=== PATIENT | female | born 1960 | race Caucasian/White ===

== ENCOUNTER → 2022-06-19 14:00 | Outpatient (BNVA) | payer OTHER, SELFPAY | PROVIDERS: Family Provider Family Medicine; Visit Provider Nurse Practitioner Women's Health | DX: N95.0 Postmenopausal bleeding (principal); N76.0 Acute vaginitis; B96.89 Other specified bacterial agents as the cause of diseases classified elsewhere; R10.2 Pelvic and perineal pain; Z12.4 Encounter for screening for malignant neoplasm of cervix | CPT/HCPCS: 87491; 87591; 87624; 87661; 88175 ==

== ENCOUNTER → 2022-07-30 10:52 | Outpatient (BNVA) | payer OTHER, SELFPAY | PROVIDERS: Family Provider Family Medicine; PCP Family Medicine; Visit Provider Internal Medicine Rheumatology | DX: M45.6 Ankylosing spondylitis lumbar region (principal); M19.90 Unspecified osteoarthritis, unspecified site; Z79.899 Other long term (current) drug therapy | CPT/HCPCS: 36415; 72100; 72170; 73130; 73562; 80076; 82565; 85025; 85651; 86140; 86200; 86812 ==

== ENCOUNTER 2023-01-18 13:23 | Outpatient (CLI) | payer OTHER, SELFPAY ==
--- NOTE | 2023-01-18 14:00 | US_ITS ---
WS: [id number] US pelv w/transvag [id number] HISTORY: R10.2 - Pelvic and perineal pain COMPARISON: None available. Uterus: 6.5 cm x 3.4 cm x 2.2 cm. Normal size anteverted uterus. No fibroid or mass. Endometrium: 0.5 cm. Size is normal but there is mild heterogeneity throughout. RIGHT adnexa: RIGHT ovary is not definitely visualized. There is a mass in the RIGHT adnexa which is mildly heterogeneous with some shadowing. This mass is a increased echogenicity as compared to a norm al ovary. Mass measures 2.8 x 1.8 x 2.2 cm and is inseparable from the uterus. Shadowing suggests thi s could be a fibroid. The ovary is not seen. This RIGHT adnexal mass may also be inspissated fecal ma terial within the GI tract. Left ovary: 2.2 cm x 3.4 cm x 2.0 cm. Normal size and vascularity, no cystic or solid masses. Small f ollicle associated with the ovary measures 1.8 x 2.8 x 1.7 cm. No free fluid in the cul-de-sac. US/US pelv w/transvag [id number] IMPRESSION: 1. RIGHT adnexal mass with a few areas of shadowing measures 2.8 x 1.8 x 2.2 c m. Not a typical appearance of the ovary. This may be an exophytic fibroid from the uterus or inspissated fecal material within the GI tract. Short-term trans vaginal ultrasound follow-up may be of benefit. 2. Very mildly heterogeneous endometrium. No discrete mass identified. 3. Small LEFT ovarian follicle.
== END 2023-01-18 13:24 | disposition home or self-care (01) ==
LOC: RAD 13:31
PROVIDERS: PCP Family Medicine; Visit Provider Obstetrics & Gynecology
DX: R10.2 Pelvic and perineal pain (principal); R19.09 Other intra-abdominal and pelvic swelling, mass and lump
CPT/HCPCS: 76830; 76856

== ENCOUNTER → 2023-03-07 08:24 | Outpatient (BNVA) | payer OTHER, SELFPAY | PROVIDERS: PCP Family Medicine; Visit Provider Nurse Practitioner Women's Health | DX: R19.00 Intra-abdominal and pelvic swelling, mass and lump, unspecified site (principal) | CPT/HCPCS: 76830 ==

== ENCOUNTER 2023-04-11 12:01 | Outpatient (CLI) | payer OTHER, SELFPAY ==
[2023-04-11] MEDS: gadobenate dimeglumine 20 mL vial IV (12:49)
--- NOTE | 2023-04-11 13:00 | MR_ITS ---
WS: [id number] MRI PELVIS WITH AND WITHOUT CONTRAST. COMPARISON: Pelvic ultrasound 03/07/2023 and 01/18/2023. Multiplanar, multisequence imaging is performed with and without contrast. MultiHance 20 mL IV. Uterus is midline and normal size. Thin endometrium measuring 5 mm. No masses are identified along th e endometrial canal. Small nabothian cysts at the cervix. No fibroid identified. In the RIGHT adnexa is a low signal mass which is embedded within the suspensory ovarian ligament. Th is mass corresponds to the finding on the recent pelvic ultrasounds. Mass measures 2.8 x 3.3 x 2.3 cm . This is in the correct location for an ovary. No separate ovary is identified. This does not appear to be an exophytic fibroid as suspected on the prior examination. No follicles. No abnormal enhancem ent. Diffusion imaging is negative. In the LEFT adnexa embedded within the ovarian suspensory ligament is a 1.6 x 2.4 x 3.0 cm mass. This mass is of increased signal on the T1 sequences. There is very mild heterogeneity of signal. This is most consistent with a hemorrhagic cyst. This cyst has decreased significantly in size as compared t o the prior ultrasound of 03/07/2023. There is no free fluid in the pelvis. No adenopathy identified. No areas of abnormal enhancement with in the pelvis. Grade 1 spondylolisthesis of one of the lower vertebral bodies. This is either L4 or L5. IMPRESSION: 1. The RIGHT adnexal mass previously described by ultrasound is embedded within the ovarian suspensor y ligament and this is most consistent with an ovary. No enhancement in the diffusion imaging is norm al. Suspect this is a normal ovary for this patient. 2. Hemorrhagic cyst LEFT ovary. This cyst has decreased in size since the prior ultrasound. 3. Normal endometrium.
== END 2023-04-11 12:02 | disposition home or self-care (01) ==
PROVIDERS: PCP Family Medicine; Visit Provider Nurse Practitioner Women's Health
DX: R10.2 Pelvic and perineal pain (principal); N83.8 Other noninflammatory disorders of ovary, fallopian tube and broad ligament; N83.202 Unspecified ovarian cyst, left side
CPT/HCPCS: 72197; A9577